=== PATIENT | female | born 1965 ===

== ENCOUNTER 2022-08-08 19:59 | Emergency (ER) | payer MEDICAID ==
[2022-08-08] MEDS ORDERED: Diphtheria,Pertussis(Acell),Tetanus Vaccine 0.5 ML Syringe IM ONE (21:47)
[2022-08-08] MEDS ORDERED: Amoxicillin/Clavulanate K 875-125 MG Tab PO ONE (21:50)
[2022-08-08 21:52] VITALS: PULSE 104
[2022-08-08 22:23] VITALS: BP 115/68
== END 2022-08-08 22:32 | disposition home or self-care (01) ==
LOC: DL.ED 19:59
DX: S91.332A Puncture wound without foreign body, left foot, initial encounter (principal); Z23 Encounter for immunization; W22.8XXA Striking against or struck by other objects, initial encounter; Y92.79 Other farm location as the place of occurrence of the external cause
CPT/HCPCS: 90471; 90715; 99282; 99282-25; A9270-GY

== ENCOUNTER 2024-01-21 15:18 | Emergency (ER) | payer MEDICAID ==
[2024-01-21 15:53] LABS: APPEARANCE,URINE SLIGHTLY CLOUDY (CLEAR); BILIRUBIN,URINE SMALL (NEGATIVE); COLOR,URINE YELLOW (YELLOW); GLUCOSE,URINE NEGATIVE (NEGATIVE); KETONES,URINE NEGATIVE (NEGATIVE); LEUKOCYTE ESTERASE,URINE SMALL (NEGATIVE); NITRITE,URINE POSITIVE (NEGATIVE); OCCULT BLOOD,URINE NEGATIVE (NEGATIVE); PH,URINE 5.5 (5.0-9.0); PROTEIN,URINE 30 (NEGATIVE); UROBILINOGEN,URINE 0.2 mg/dL (0.2-1.0)
[2024-01-21] MEDS: Iopamidol 612 MG/ML 100 ML Bottle IVPUSH ONE ×2 (16:02→18:23)
[2024-01-21] MEDS ORDERED: Sodium Chloride 0.9% 10 ML Syringe FLUSH PRN (16:02)
[2024-01-21] MEDS ORDERED: Naloxone 2 MG/2 ML Syringe IVPUSH PRN (16:03)
[2024-01-21 16:04] LABS: AMORPHOUS SEDIMENT,URINE FEW /HPF (NOT SEEN); BACTERIA,URINE MANY /HPF (0-FEW/HPF); EPITHELIAL CELLS,URINE MODERATE /HPF (NOT SEEN); MUCUS,URINE MODERATE /LPF (NOT SEEN); RBC,URINE 0-5 /HPF (0-5); WBC,URINE 20-30 /HPF (0-5/HPF)
[2024-01-21 16:05] LABS: HYALINE CASTS,URINE FEW
[2024-01-21 16:12] LABS: METHAMPHETAMINES,URINE POSITIVE (NEGATIVE)
[2024-01-21 16:13] LABS: AMPHETAMINES,URINE POSITIVE (NEGATIVE); BARBITURATES,URINE NEGATIVE (NEGATIVE); BENZODIAZEPINE,URINE NEGATIVE (NEGATIVE); MDMA (ECSTASY), URINE NEGATIVE (NEGATIVE); METHADONE,URINE NEGATIVE (NEGATIVE); OPIATES,URINE NEGATIVE (NEGATIVE); OXYCODONE,URINE NEGATIVE (NEGATIVE); PHENCYCLIDINE,URINE NEGATIVE (NEGATIVE); TCA,URINE NEGATIVE (NEGATIVE)
[2024-01-21 16:17] LABS: BASOPHILS PERCENT AUTO 0.4 % (0.0-1.0); EOSINOPHILS PERCENT AUTO 2.2 % (1.0-3.0); HEMATOCRIT 41.5 % (37.0-47.0); MEAN CORPUSCULAR HEMOGLOBIN 30.3 pg (27.0-34.0); MEAN CORPUSCULAR HGB CONC 33.7 g/dL (33.0-35.0); MEAN CORPUSCULAR VOLUME 89.8 fL (80-100); MONOCYTES PERCENT AUTO 8.9 % (2-8); NEUTROPHILS PERCENT AUTO 62.5 % (42.2-75.2); PLATELET COUNT,PLT 473 10^3/uL (150-450); RED BLOOD CELL COUNT 4.62 10^6/uL (4.2-5.4); WHITE BLOOD CELL COUNT,WBC 6.8 10^3/uL (5.0-10.0)
[2024-01-21] MEDS: Sodium Chloride 0.9% 1,000 ML IV ONE (16:19)
[2024-01-21] MEDS: Morphine 2 MG/ML SYRINGE IVPUSH ONE (16:20)
[2024-01-21 16:43] LABS: A/G RATIO 0.9; ALANINE AMINOTRANSFERASE,ALT 39 U/L (14-59); ALBUMIN 3.6 g/dL (3.4-5.0); ALKALINE PHOSPHATASE 168 U/L (46-116); ANION GAP 15.3 mEq/L (7-13); ASPARTATE AMNIOTRANSFERASE,AST 27 U/L (15-37); BILIRUBIN TOTAL 0.5 mg/dL (0.2-1.0); BLOOD UREA NITROGEN,BUN 8 mg/dL (7-18); BUN/CREATININE RATIO 9.9 (No establ ref range); CALCIUM 9.8 mg/dL (8.5-10.1); CARBON DIOXIDE,CO2 25 mmol/L (21-32); CHLORIDE,CL 102 mmol/L (98-107); CREATININE 0.81 mg/dL (0.55-1.02); GLUCOSE RANDOM 108 mg/dL (70-99); LIPASE 27 U/L (16-77); MAGNESIUM 1.7 mg/dL (1.8-2.4); POTASSIUM,K 4.3 mmol/L (3.5-5.1); PROTEIN TOTAL,TP 7.5 g/dL (6.4-8.2); SODIUM,NA 138 mmol/L (136-145)
[2024-01-21 16:44] LABS: ESTIMATED GFR 85 mL/min (>=60)
[2024-01-21 16:58] LABS: LACTIC ACID 2.3 mmol/L (0.4-2.0)
[2024-01-21 19:52] VITALS: BP 128/60; PULSE 92
== END 2024-01-21 19:49 | disposition home or self-care (01) ==
LOC: DL.ED 15:18
DX: O23.10 Infections of bladder in pregnancy, unspecified trimester (principal); N30.90 Cystitis, unspecified without hematuria; Z3A.00 Weeks of gestation of pregnancy not specified
CPT/HCPCS: 36415; 76817; 80053; 80305-QW; 81001; 81025; 83605; 83690; 83735; 84484; 84702; 84703; 85025; 96361; 96365; 96366; 96368; 96375; 99283; 99284-25; J2270; J3475; J3490; J7030